=== PATIENT | female | born 1965 | race Caucasian/White ===

== ENCOUNTER 2024-05-17 13:11 | Inpatient (IN) | payer OTHER, SELFPAY ==
[2024-05-17 13:16] VITALS: BP 134/76; PULSE 72; RESP 16; TEMP 36.3; O2SAT 99; BMI 33.3
--- NOTE | 2024-05-17 13:23 | ED_ITS ---
HPI - General Adult General Time Seen by Provider: 13:23 Date Seen: 05/17/24 Chief complaint: Skin/Abscess/Foreign Body Stated complaint: Puncture wound to left leg Time Seen by Provider: 05/17/24 13:12 Source: patient and RN notes reviewed Mode of arrival: ambulatory Limitations: no limitations History of Present Illness HPI narrative: This 58-year-old female is coming into the ER with ongoing symptoms after a puncture wound about 48 hours ago. She went to [facility] yesterday, was given Augmentin, she states she had x-rays and they did irrigate the wound. She states the fluid return was clear. She has not documented fevers but felt chilled last night. She has had 2 doses of the Augmentin. She notes that she is having increasing pain behind the right knee area and the redness seems to be worsening. She has noted no purulent discharge. This was reportedly a wooden fence posts with long spikes on it. The spikes were kyle and old. She does not feel any bony type pain with ambulation. She states her foot is maybe feeling a little numb or tingly. She has been trying to minimize use of Tylenol and ibuprofen so as to not mask any symptoms. She was up in the middle the night due to discomfort, did take ibuprofen then. No history of MRSA. She takes an 81 mg aspirin daily, multi-vitamin, cholesterol medicine and levothyroxine. She is not diabetic. Related Data Home Medications ?Medication ?Instructions ?Recorded ?Confirmed levothyroxine 25 mcg tablet 25 mcg PO DAILY 10/08/22 05/17/24 amoxicillin 875 mg-potassium 1 tab PO Q12H 05/17/24 05/17/24 clavulanate 125 mg tablet Allergies Allergy/AdvReac Type Severity Reaction Status Date / Time No Known Drug Allergies Allergy Unknown Uncoded 10/08/22 11:19 Review of Systems Status of ROS: Reports: 6 or more systems reviewed and unremarkable except as noted in History and below Narrative: Patient notes it is Hayfever season for her, has respiratory symptoms with her hay fever. PFSH [facility] Social History Smoking Status: Never smoker Exam Const: Vital Signs, click to edit/add: Vital Signs - 24 hr 05/17/24 13:16 Temperature 97.4 F L Pulse Rate [Pulse Oximeter] 72 Respiratory Rate 16 Blood Pressure [Ri ght Upper Arm] 134/76 Pulse Oximetry 99 Oxygen Delivery Me thod Room Air Talia is a 58-year-old female that is alert, interactive, no apparent distress. She is ambulatory into the ED of her own accord. Sclera clear, symmetrical facial function coming able speak in complete sentences. CV regular rate and rhythm, no murmur, normal S1-S2, no S3-S4. Lungs are clear, no wheezing crackles, no tachypnea. Her upper portion of her right lower extremity does have erythema laterally surrounding about a 1.5 cm puncture wound in the right upper lateral soft tissue. There is some white exudate, some serous fluid discharge. She has erythema extending probably at least 6 8 cm circumferentially around this. There is generalized swelling. She is tender when palpating in the erythematous areas. There is a little extension into the right popliteal fossa of erythema. She has normal light touch sensation, strong symmetrical pulses in her right foot. Skin is warm and dry and same as her left foot. She has retained motor function within this extremity. Documenting provider has reviewed patient's vital signs: yes Course Course ED Course: Nursing staff did pull up her x-ray report off [facility], did show small punctate radiopacities over the proximal lateral leg which may be external to the patient or small retained foreign bodies. Correlation with physical exam was recommended. Have reviewed with her that we should reimage, see if there is further retained foreign bodies. There certainly is cellulitis, will get some baseline labs. Have reviewed with her that I would not say that 2 doses of Augmentin would necessitate a medication failure. I certainly do have concerns if there is retained foreign bodies in the wound. Nursing staff did find her tetanus to be up-to-date in 2021. Reevaluation(s) Time of Reevaluation #1: 14:24 Reevaluation #1: Reviewed with patient the 1 radiopaque foreign body seen along the inferior aspect of the wound. On the lateral view it is obscured by bone, difficult to assess where it in the inferior portion of the wound this is. Did take a Q-tip in go along the inferior portion of the wound x2, could not visibly see and did not pull back any foreign body. Literature would support no excessive blunt or blind manipulation of the wound in this situation. This wound is widely patent, patient understands that this foreign body may ultimately make its way to the exit. I am waiting to talk to Orthopedics, do think we need to consider are hospitalization for IV antibiotics initially in this patient. Labs are overall reassuring outside of an elevated C-reactive protein. D-dimer is negative. Consultations Consultation #1: Have spoken with Dr. Miranda the hospitalist. I still have not heard back from Orthopedics but did call to discuss this case with him. Is going to come down and see the patient, did recommend that we culture the wound, will definitely do a swab of the wound. Have reviewed this with the patient, she understands that he is coming to assess to see if he agrees with hospitalization, upon my discussion with him consideration for both Zosyn and vancomycin would be entertained. Will await him to see the patient. Note I did subsequently go into wound culture, did have 1 small visible black fragment of matter on 1 of the wound swabs when I retrieved it from the wound. Reviewed with the patient that this may or may not be the radio opaque fragment that we saw. Sometimes organic matter can get in these wounds 2 and will not show up radiopaque. Time: 14:30 Consultation #2: Ria PEREZ from Orthopedics was consulted, she is aware the patient will be here. Dr. Miranda has assess the patient, feels the cellulitis is worsening based on her history and clinical exam. We will initiate vancomycin and ertapenem. He will be following this patient, Orthopedics can consult tomorrow. He does not want any advanced imaging at this time but would consider it if she is not improving, consideration for abscess would be entertained at that point. Time: 14:57 Vital Signs Vital signs: Initial Vital Signs Temperature 97.4 F L 05/17/24 13:16 Temperature Source Temporal Artery Scan 05/17/24 13:16 Pulse Rate 72 05/17/24 13:16 Pulse Rhythm Regular 05/17/24 13:16 Respiratory Rate 16 05/17/24 13:16 Blood Pressure 134/76 05/17/24 13:16 Blood Pressure Mean 95 05/17/24 13:16 Blood Pressure Position Sitting 05/17/24 13:16 Pulse Oximetry 99 05/17/24 13:16 Oxygen Delivery Method Room Air 05/17/24 13:16 Vital Signs Temperature 97.4 F L 05/17/24 13:16 Pulse Rate 72 05/17/24 13:16 Respiratory Rate 16 05/17/24 13:16 Blood Pressure 134/76 05/17/24 13:16 Pulse Oximetry 99 05/17/24 13:16 Oxygen Delivery Method Room Air 05/17/24 13:16 Temperature 97.4 F L 05/17/24 13:16 Pulse Rate 72 05/17/24 13:16 Respiratory Rate 16 05/17/24 13:16 Blood Pressure 134/76 05/17/24 13:16 Pulse Oximetry 99 05/17/24 13:16 Oxygen Delivery Method Room Air 05/17/24 13:16 Medical Decision Making Lab Data Lab results reviewed: Yes I reviewed the patient's lab results Labs: Lab Results 05/17/24 Range/Units 13:35 WBC 6.09 (4.50-11.00) K/uL RBC 4.04 (4.00-5.20) m/uL Hgb 12.5 (12.0-16.0) gm/dL Hct 38.3 (33.0-51.0) % MCV 95 (80-100) fL MCH 31 (26-34) pg MCHC 33 (32-36) gm/dL RDW Coeff of Devante 13.0 (11.5-15.5) % Plt Count 207 (140-440) K/uL Neut % (Auto) 69.4 (42.0-72.0) % Lymph % (Auto) 19.0 L (20-44) % [place] % (Auto) 9.4 (0.0-11.0) % Eos % (Auto) 1.8 (0.0-7.0) % Baso % (Auto) 0.2 (0.0-3.0) % Neut # (Auto) 4.23 (1.7-7.0) K/uL Lymph # (Auto) 1.20 (0.90-2.90) K/uL [place] # (Auto) 0.60 (0.00-0.90) K/UL Eos # (Auto) 0.11 (0.00-0.50) K/uL Baso # (Auto) 0.01 (0.00-0.30) K/uL Abs Immat Gran (auto) 0.01 (0.00-0.30) K/uL Imm/Tot Granulo (auto) 0.2 % D-Dimer Quant (PE/DVT) 0.41 (0.00-0.50) ug/ml Sodium 137 (135-149) mmol/L Potassium 4.2 (3.6-5.1) mmol/L Chloride 108 (96-114) mmol/L Carbon Dioxide 24 (20-32) mmol/L Anion Gap 5 L (7-15) mEq/L BUN 15 (7-30) mg/dL Creatinine 0.8 (0.5-1.5) mg/dL Estimated Creat Clear 68.97 Estimated GFR 85 ml/min Glucose 102 (60-115) mg/dL Lactate 0.5 (0.5-1.9) mmol/L Calcium 10.0 (8.4-10.6) mg/dL Total Bilirubin 0.5 (0.1-1.5) mg/dL AST 25 (12-35) U/L ALT 18 (4-35) U/L Alkaline Phosphatase 91 (40-150) U/L C-Reactive Protein 5.4 H (0.5-1.0) mg/dL Total Protein 7.4 (6.0-8.3) g/dL Albumin 4.6 (3.3-5.0) g/dL Procalcitonin 0.04 (<0.50) ng/mL Imaging Data XR right tib-fib: Attestation: I have reviewed the pertinent imaging results. My impression: Can see radiopaque lesion along the inferior aspect. After Radiology read, did review the images and can see there are some more punctate superior smaller radiopaque lesions. Radiologist's impression: Patient: DESHAUN PARK Facility:?[facility] Patient ID:?[id number] Site Patient ID:?[id number]. Site :?[id number] Study:?XRay-Extremity Right 2 VIEW-05/17/2024 1:49:48 PM Ordering Physician:Lonnie Garcia Final Report: Indication: Puncture wound, retained foreign body Technique: Two views of the right lower extremity. Comparison: None. Findings/Impression: No acute fracture or dislocation. Along the lateral lower extremity there are tiny punctate radiopaque densities, the largest measuring 2 millimeters, in the region of soft tissue defect concerning for small retained foreign bodies. Dictated by Lillian Rouse MD @ 05/17/2024 2:34:52 PM (Electronic Signature) Discharge Plan Discharge Clinical Impression: Puncture wound of leg not thigh Qualifiers: Encounter type: subsequent encounter Laterality: right Qualified Code(s): S81.831D - Puncture wound without foreign body, right lower leg, subsequent encounter Cellulitis Qualifiers: Site of cellulitis: extremity Site of cellulitis of extremity: lower extremity Laterality: right Qualified Code(s): L03.115 - Cellulitis of right lower limb Prescriptions: No Action levothyroxine 25 mcg tablet 25 mcg PO DAILY amoxicillin-pot clavulanate 875-125 mg tablet 1 tab PO Q12H Follow Up/Referrals: Provider,Not a Local [Primary Care Provider] -
--- NOTE | 2024-05-17 13:31 | CRLHL7_ITS ---
For Patients: As a result of the Cures Act, medical imaging exams and procedure reports are released immediately into your electronic medical record. You may view this report before your referring provider. If you have questions, please contact your health care provider. Indication: Puncture wound, retained foreign body Technique: Two views of the right lower extremity. Comparison: None. Findings/Impression: No acute fracture or dislocation. Along the lateral lower extremity there are tiny punctate radiopaque densities, the largest measuring 2 millimeters, in the region of soft tissue defect concerning for small retained foreign bodies. Dictated by Lillian Rouse MD @ 05/17/2024 2:34:52 PM (Electronically Signed)
[2024-05-17 13:43] LABS: Lactate* 0.5 mmol/L (0.5-1.9)
[2024-05-17 13:47] LABS: Basophils Absolute Auto 0.01 K/uL (0.00-0.30); Basophils Percent Auto 0.2 % (0.0-3.0); Eosinophils Absolute Auto 0.11 K/uL (0.00-0.50); Eosinophils Percent Auto 1.8 % (0.0-7.0); Hematocrit 38.3 % (33.0-51.0); Hemoglobin* 12.5 gm/dL (12.0-16.0); Immature Granulocytes Abs Auto 0.01 K/uL (0.00-0.30); Immature Granulocytes Pct Auto 0.2 %; Mean Corpuscular HGB Conc 33 gm/dL (32-36); Mean Corpuscular Hemoglobin 31 pg (26-34); Mean Corpuscular Volume 95 fL (80-100); Monocytes Percent Auto 9.4 % (0.0-11.0); Neutrophils Absolute Auto 4.23 K/uL (1.7-7.0); Neutrophils Percent Auto 69.4 % (42.0-72.0); Platelet Count* 207 K/uL (140-440); Red Blood Count 4.04 m/uL (4.00-5.20); White Blood Count* 6.09 K/uL (4.50-11.00)
[2024-05-17 13:50] LABS: Slide Review Reflex No
[2024-05-17 14:00] LABS: Albumin* 4.6 g/dL (3.3-5.0); Chloride* 108 mmol/L (96-114); Sodium* 137 mmol/L (135-149)
[2024-05-17 14:01] LABS: Potassium* 4.2 mmol/L (3.6-5.1)
[2024-05-17 14:03] LABS: Anion Gap 5 mEq/L (7-15); Bilirubin Total* 0.5 mg/dL (0.1-1.5); Carbon Dioxide* 24 mmol/L (20-32); Creatinine* 0.8 mg/dL (0.5-1.5); Est. Creatinine Clearance* 68.97; Estimated Glomerular Filt Rate 85 ml/min
[2024-05-17 14:04] LABS: Alanine Aminotransferase* 18 U/L (4-35); Alkaline Phosphatase* 91 U/L (40-150); Aspartate Amino Transferase* 25 U/L (12-35); Blood Urea Nitrogen* 15 mg/dL (7-30); Glucose* 102 mg/dL (60-115); Total Protein* 7.4 g/dL (6.0-8.3)
[2024-05-17 14:06] LABS: D Dimer Quantitative* 0.41 ug/ml (0.00-0.50)
[2024-05-17 14:07] LABS: C Reactive Protein* 5.4 mg/dL (0.5-1.0)
--- OUTSIDE RECORDS SUMMARY | 2024-05-17 14:10 | XMS_ITS | Clinical Summary ---
Author Organization [facility] Address [place], [place] [address] Care Team Providers Care Ferry Terminal Supervisor Name Role Phone Migel Sommers Primary Care Provide r Allergies Active Allergy Reactions Criticality Noted Date Comments Homeopathic Products Runny Nose Medium 09/11/2007 seasonal/environmental allergies Mold *Unknown 09/20/2021 Medications Medication Sig Dispensed Refills Start Date End Date Status MULTIVITAMIN TAB take 1 tablet by oral route once daily with food 0 Active ASPIRIN 81 MG CHEWABLE TAB chew 1 tablet (81 mg) by oral route once daily 0 Active levothyroxine (SYNTHROID) 50 mcg tabletIndications:Hy pothyroidism (acquired) Take 1 Tablet (50 mcg) by mouth once daily. 90 Tablet 3 10/06/2023 Active rosuvastatin (CRESTOR) 10 mg tabletIndications:Ot her hyperlipidemia Take 1 Tablet (10 mg) by mouth at bedtime. 90 Tablet 3 10/06/2023 Active amoxicillin-clavulan ate (AUGMENTIN) 875-125 mg tabletIndications:Pu ncture wound Take 1 Tablet by mouth every 12 hours for 10 days. 20 Tablet 05/16/2024 05/26/2024 Active amoxicillin-clavulan ate (AUGMENTIN) 875-125 mg tabletIndications:Pu ncture wound Take 1 Tablet by mouth every 12 hours for 10 days. 20 Tablet 05/16/2024 05/16/2024 Discontinued (*Medication adjustment) Active Problems Problem Noted Date Diagnosed Date Pap smear for cervical cancer screening 10/20/19 24 Overview: 09/2023 UNS/HPV negative. Plan: Pap/HPV due 09/2024. Hypothyroidism (acquired) Encounters Date Type Department Care Team Description 05/16/2024 5:30 PM CDT Ancillary Procedure [facility] [address] [place] [address] Arrived 05/16/2024 4:50 PM CDT Office Visit [facility] [place] [id number] [place] [phone] Juan Daniel Reid PA Leg Laceration (puncture wound to right leg ) 05/16/2024 Travel from Last 3 Months Immunizations Name Administration Dates Next Due COVID-19 vaccine ([place] NTDigital Bloom 30mcg/0.3mL) 12YO+ BIVALENT PF, MDV 06/12/2022 Influenza, IIV4 06/12/2022,06/27/2021 Influenza,CCIIV4 PRESERV FREE 06/09/2023 Tdap 09/20/2021,10/06/2009 Zoster (Shingrix-RZV, recombinant) 09/30/2023, Family History Medical History Relation Name Comments Cancer-breast Paternal Grandmother Relation Name Status Comments Paternal Grandmother (Age 78) Di agnosed at 70 Social History Tobacco Use Types Packs/Day Years Used Date Smoking Tobacco: Former Smokeless Tobacco: Never Tobacco Cessation:Counseling Given: Not Answered Alcohol Use Standard Drinks/Week Comments Yes 0 (1 standard drink = 0.6 oz pur e alcohol) occ PHQ-2 Answer Date Recorded PHQ-2 TOTAL SCORE 0 10/06/2023 Social Connections Answer Date Recorded Frequency of Communication with Friends and Fami ly 0 10/06/2023 Financial Resource Strain Answer Date R ecorded Difficulty of Paying Living Expenses 3 10/06/2023 Difficulty of Paying Living Expenses Not on file 10/06/2023 Food Insecurity Answer Date Recorded Worried About Running Out of Food in the Last Ye ar 1 10/06/2023 Transportation Needs Answer Date Record ed Lack of Transportation (Medical) 1 10/06/2023 Housing Stability Answer Date Recorded Unable to Pay for Housing in the Last Year 1 10/06/2023 Sex and Gender Information Value Date Recorded Sex Assigned at Not on file Gender Identity Not on file Sexual Orientation Not on file Travel History Travel Start Travel End [place] 04/27/2024 05/02/2024 Obstetrics History Last Filed Vital Signs Vital Sign Reading Time Taken Comments Blood Pressure 125/65 05/16/2024 4:44 PM CDT Pulse 70 05/16/2024 4:44 PM CDT Temperature 36.8 ??C (98.2 ??F) 05/16/2024 4:44 PM CD T Respiratory Rate 16 05/16/2024 4:44 PM CDT Oxygen Saturation 98% 05/16/2024 4:44 PM CDT Inhaled Oxygen Concentration - - Weight 84.8 kg (187 lb) 10/06/2023 12:24 PM STUFFER Height 163.8 cm (5' 4.5) 10/06/2023 12:24 PM CS T Body Mass Index 31.6 10/06/2023 12:24 PM STUFFER Plan of Treatment Upcoming Encounters Date Type Department Care Team (Late st Contact Info) Description 05/25/2024 9:40 AM CDT Office Visit [facility] [address] [place] [address] [facility] [address] [place], [place] [id number] Health Maintenance Due Date Last Done Comments Mammogram for age 45-75 04/18/2024 04/18/20, 01/01/2022, 11/20/2020, Additional history exists COVID-19 vaccine series (2022- season) 2024 06/12/2022, 08/30/2021, 12/20/2020 Influenza for age 50-64 05/16/2024 06/09/20 23, 06/12/2022, 06/27/2021 BMI (ht and wt on same day) for age 18+ 10/06/2024 10/06/2023, 09/16/2022, 09/20/2021 Depression screening for age 12+ 10/06/2024 10/06/2023, 09/16/2022, 09/24/2021, Additional history exists Pap test for age 21-65 10/06/2024 , 10/02/2020 (Verified in Care Everywhere or Patient Record) Colonoscopy through age 75 12/19/202512/19, 12/20/2015 (Verified in Care Everywhere or Patient Record) Lipids for age 45-75 10/06/2028 10/06/2023, 09/16/2022, 01/01/2022, Additional history exists Tetanus booster 09/20/2031 09/20/2021, 10/06/2009 Tdap Completed 09/20/2021, 10/06/2009 HIV for age 15-65 Completed 09/16/2022 Hepatitis C screening for age 18-79 Completed 09/16/2022 Zoster (shingles) series for age 50+ Completed 09/30/2023, 06/09/2023 Pneumococcal series for age 6-64 Aged Out No longer eligible based on patient's age to complete this topic Procedures Procedure Name Priority Date/Time Associated Diagnosis Comments XR TIBIA AND FIBULA 2 VIEWS RIGHT STAT 05/16/2024 5:42 PM CDT Puncture wound LIPID PANEL W REFLEX MEASURED LDL Routine 10/06/2023 1:01 PM STUFFER Routine general medical examination at a health care facility HPV THIN PREP Routine 10/06/2023 12:40 PM STUFFER Screening for cervical cancer XR MAMMO CHARLES BILAT SCREEN Routine 04/18/2023 9:50 AM CDT Visit for screening mammogram LC HIV-1/O/2, 4TH GENERATION Routine 09/16/2022 12:29 PM STUFFER Screening for HIV (human immunodeficiency virus) LC HCV ANTIBODY RFX TO QUANT PCR Routine 09/16/2022 12:29 PM STUFFER Need for hepatitis C screening test SCAN-COLONOSCOPY 12/20/2015 12:0 0 AM CDT from Last 3 Months or Most Recently Relevant to Health Maintenance Results * XR TIBIA AND FIBULA 2 VIEWS RIGHT (05/16/2024 5:42 PM CDT) Anatomical Region Laterality Modality Tibia Computed Radiogr aphy 05/16/2024 5:42 PM CDT Impressions 05/16/2024 5:48 PM CDT Within normal limits. No acute fracture. Foci of soft tissue gas and edema over the lateral proximal leg which may be related to reported puncture wound. Small punctate radiopacities over the proximal lateral leg which may be external to the patient or small retained foreign bodies. Correlation with physical exam suggested. Narrative 05/16/2024 5:48 PM CDT For Patients: As a result of the Cures Act, medical imaging exams and procedure reports are released immediately into your electronic medical record. You may view this report before your referring provider. If you have questions, please contact your health care provider. EXAM: XR TIBIA AND FIBULA 2 VIEWS RIGHT LOCATION: [facility] DATE: 05/16/2024 INDICATION: Puncture Wound COMPARISON: None. Procedure Note Adilson Begum, - 05/16/2024 For Patients: As a result of the Cures Act, medical imagingexams and procedure reports are released immediately into your electronicmedical record. You may view this report before your referring provider.If you have questions, please contact your health care provider. EXAM: XR TIBIA AND FIBULA 2 VIEWS RIGHT LOCATION: [facility] DATE: 05/16/2024 INDICATION: Puncture Wound COMPARISON: None. IMPRESSION: Within normal limits. No acute fracture. Foci of soft tissue gas and edemaover the lateral proximal leg which may be related to reported puncturewound. Small punctate radiopacities over the proximal lateral leg whichmay be external to the patient or small retained foreign bodies.Correlation with physical exam suggested. Juan Daniel [facility] * LIPID PANEL W REFLEX MEASURED LDL (10/06/2023 1:01 PM STUFFER) CHOLESTEROL,TOTAL 174 100 - 199 mg/dL 10/06/2023 11:10 PM STUFFER [facility] Comment: Cholesterol, Total Reference Ranges Desirable <200 mg/dL Borderline 200-239 mg/dL High >=240 mg/dL TRIGLYCERIDES 59 <150 mg/dL 10/06/2023 11:10 PM [facility] HDL CHOLESTEROL 70 >40 mg/dL 11:10 PM [facility] NON-HDL CHOLESTEROL 104 <145 mg/dl 10/06/2023 11:10 PM [facility] CHOL/HDL RATIO 2.49 <4.50 10/06/2023 11:10 PM [facility] LDL CHOLESTEROL 92 <=130 mg/dL 10/06/2023 11:10 PM [facility] VLDL CHOLESTEROL 12 <=30 mg/dL 10/06/2023 11:10 PM [facility] PROVIDER ORDERED STATUS RANDOM 10/06/2023 11:10 PM [facility] Blood BLOOD SPECIMEN / Unknown Venipuncture / Unknown 10/06/2023 1:01 PM STUFFER 10/06/2023 3:32 PM STUFFER Migel Sommers DO CHEMISTRY [facility] [address] [place] [address], * HPV HIGH RISK (10/06/2023 12:40 PM STUFFER) TYPE 16 Negative Negative 10/09/2023 5:15 PM STUFFER [facility] TYPE 18 Negative Negative 10/09/2023 5:15 PM STUFFER [facility] OTHER HIGH RISK TYPES Negative Negative 10/09/2023 5:15 PM STUFFER [facility] Other (Cervical) Non-Blood / Unknown 10/06/2023 12:40 PM STUFFER 10/07/2023 8:56 AM STUFFER [facility] - 10/09/2023 5:15 PM STUFFER HPV types 16, 18, 31, 33, 35, 39, 45, 51, 52, 56, 58, 59, 66 and 68 DNA were undetectable or below the pre-set threshold. Methodology: Kayden Jessica 4800 HPV Test Migel Sommers DO MICROBIOLOGY [facility] [address] [place] [address], * XR MAMMO CHARLES BILAT SCREEN (04/18/2023 9:50 AM CDT) Anatomical Region Laterality Modality BREASTS, Breast Left, Breast Right Bilateral Mammography Impressions 04/21/2023 1:36 PM CDT ??There is no radiographic evidence for malignancy. ??Recommend annual mammograms. MAMMOGRAM ASSESSMENT: ??ACR 1 Negative PATIENTS: You will also receive a letter with your examination results in an easy to read format. ??If you have questions about your results, please contact your referring provider. Narrative 04/21/2023 1:36 PM CDT For Patients: As a result of the Century Cures Act, medical imaging exams and procedure reports are released immediately into your electronic medical record. You may view this report before your referring provider. If you have questions, please contact your health care provider. XR MAMMO CHARLES BILAT SCREEN [[id number]] CLINICAL HISTORY: ??This is an asymptomatic 57 y.o. patient. INDICATION FOR EXAM: Mammogram Screening. TECHNIQUE: CC & MLO views were obtained. ??This study was evaluated with the assistance of Computer-Aided Detection. Breast Tomosynthesis was used in interpretation. COMPARISON FILM: Yes [facility]22 [facility] FINDINGS: ??The breasts are heterogeneously dense, which may obscure small masses. There are no dominant masses, suspicious micro calcifications or areas of architectural distortion. Migel Sommers DO MAMMO * LC HCV ANTIBODY RFX TO QUANT PCR (09/16/2022 12:29 PM STUFFER) HCV Ab <0.1 0.0 - 0.9 s/co ratio 09/19/2022 11:06 PM STUFFER [facility] Blood BLOOD SPECIMEN / Unknown Venipuncture / Unknown 09/16/2022 12:29 PM STUFFER 09/16/2022 12:29 PM STUFFER Narrative [facility] ([facility]) - 09/19/2022 11:06 PM STUFFER Performed at: ??[address] ??[id number] Service Member: Issa Cuenca MD, Phone: ??[phone] Migel Gurvinder Martelraymond DO LABORATORY [facility] ([facility]) [address] [place] [address], * HIV-1/O/2, 4TH GENERATION (09/16/2022 12:29 PM STUFFER) HIV Scr 4th Gen Non Reactive Non Reactive 09/20/2022 1:[address] [facility] ([facility]) Comment: HIV Negative HIV-1/HIV-2 antibodies and HIV-1 p24 antigen were NOT detected. There is no laboratory evidence of HIV infection. Blood BLOOD SPECIMEN / Unknown Venipuncture / Unknown 09/16/2022 12:29 PM STUFFER 09/16/2022 12:29 PM STUFFER Narrative [facility] ([facility]) - 09/20/2022 1:07 AM STUFFER Performed at: ??[address] ??[id number] Service Member: Issa Cuenca MD, Phone: ??[phone] Migel Sommers DO LABORATORY Performing Organization Address City/[facility]/ZIP Co de Phone Number 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
--- OUTSIDE RECORDS SUMMARY | 2024-05-17 14:10 | XMS_ITS | Data Portability ---
Author Organization [facility], [id number] Address [address] [place] [id number] Assessment No assessment recorded. Plan of Treatment Reminders Order Date Submit Date Provider Last Modified By Organization Details Last Modified Time Details Appointments None record ed. Lab pap, LB 021 10/02/19 21 [facility], [address] [place], [address], 1 14:05:22 HPV DNA, high-r isk 021 10/02/19 21 [facility], [address] [place], [address], 1 14:05:20 Referral None record ed. Procedures None record ed. Surgeries None record ed. Imaging None record ed. Medication Orders None record ed. Patient TargetsNo targets recorded. Patient Instructions Encounter Date Encounter Id Patient Instructions Last Modified By Organization Details Last Modified Time 10/02/2020 [id number] RTC in 1 year fo r annual breast/pelvic exam. Continue annual exams with PCP. Sent PAP, HPV. Will call pt with results. Last mammogram: 2019 was normal. Advised to schedule routine mammogram. Last colonoscopy at age 50 was normal. Will repeat at age 60. Advised to always wear seatbelt. Recommended monthly breast checks. Pt's paternal grandmother had breast cancer around age 80. Denies FmHx of ovarian, uterine, cervical or colon cancers. All questions answered. [email or web address] Not available 10/02/2020 17:24:22 Reason for Referral None Reported. Results Created Date Observation Date Name Description Value Unit Range Abnormal Flag Note LastModifiedBy Organization Detail LastModifiedTime 10/02/1910/02/2020 HPV DNA, high- risk HPV high risk type 16 Negati ve for HPV type 16. negati ve for HPV type 16. Not Available [facility] [address] [place], [address], 10/11/2020 14:05:19 10/02/1910/02/2020 HPV DNA, high- risk HPV high risk type 18 Negati ve for HPV type 18. negati ve for HPV type 18. Not Available [facility] [address] [place], [address], 10/11/2020 14:05:19 10/02/1910/02/2020 HPV DNA, high- risk HPV other high risk types Negati ve for other high risk HPV types. negati ve for other high risk HPV types. HPV other high risk types inclu de 31, 33, 35, 39, 45, 51, 52, 56, 58, 59, 66, and 68. Not Available [facility] [address] [place], [address], 10/11/2020 14:05:19 10/02/1910/02/2020 pap, LB case report See note CASE REPOR T ----- ----- ----- ----- ----- ----- ----- ----- Pap Smear Case: [id number] Autho zach causey Provi katerina: Rafy Key PA Colle cted: 10/02 01:59 PM Order ing Locat ion: Fernando winter Healjayla h Recei hammad: 10/03 09:03 AM Hospi janet Gener al Labor atory First Scree n: Leijosesito h, Caterina Speci men: Cervi kevin Thin Prep with HPV Test Image r Scree sisi, Cervi x ===== ===== ===== ==== = INTER PRETA TION: = ===== ===== ===== ==== Negat adriel for intra epith elial lesio n or malig nant cells . Elect pretty paul d by Caterina Land on 2020 at 1:04 PM SPECI MEN ADEQU ACY ----- ----- ----- ----- ----- ----- ----- ----- Satis facto ry for evalu ation . Endoc errashid al/tr ansfo rmati on zone compo nent prese nt. CLINI KEVIN INFOR MATIO N ----- ----- ----- ----- ----- ----- ----- ----- Postm enopa usal LMP ----- ----- ----- ----- ----- ----- ----- ----- UNKNO WN PAP DISCL AIMER ----- ----- ----- ----- ----- ----- ----- ----- This speci men was scree itz by the ThinP rep Imagi ng Syste m prior to manua l revie w by a cytot echno logis t and/o r patho logis t. The Pap test is a scree sisi test and has an irred ucibl e false -nega tive rate. Routi ne perio dic testi ng and follo w-up of unexp angelic d clini kevin signs and sympt oms are impor tant to minim ize the conse quenc e of false -nega tive Pap tests . Cassandra dawson et al. 2012 Updat ed Conse nsus Guide lines for the Manag ement of Abnor mal Cervi kevin Cance r Scree sisi Tests and Canstephan r Precu rsors . J Low Genit Tract Dis 2013; 17 (5): S2-S2 7 Not Available [facility] [address] [place], [address], 10/11/2020 14:05:22 Result Notes None recorded. Problems Name Problem SNOMED Code Status Onset Date Resolution Date Notes Provider Name and Address Organization Details Recorded Time Hypothyroidism 01094451 Active on meds Not Available [facility] 0 05:07:30 Migraine 13709343 Active Not Available [facility] 0 05:07:30 Problem Notes None recorded. Procedures Surgical History Date Name Laterality Status Provider Name and Address Organization Details Recorded Time 10/02/19 21 Date of Last Pap Smear completed Tayla Linkert (TERMED) [facility] 10/11/2020 16:15:05 loop electrosurgical excision procedure completed Not Available [facility] 04/20/2020 05:12:06 radical bunionectomy completed Not Available [facility] 04/20/2020 05:12:06 endoscopic carpal tunnel release completed Not Available [facility] 04/20/2020 05:12:06 dilation and curettage completed Not Available [facility] 04/20/2020 05:12:06 endometrial ablation completed Not Available [facility] 04/20/2020 05:12:07 hysteroscopy completed Not Available [facility] 04/20/2020 05:12:07 Imaging Results None recorded. Procedure Notes None recorded. Medical Equipment None Reported. Allergies Allergen ID Allergen Name Allergen Category Reaction Reaction Severity Criticality Documentation Date Start Date Code Code System Note Provider Name and Address Organization Details Recorded Time 37605 mold extract environme nt Not available Not available Not available 04/20/2020 09824 8 RxNorm Not Available [facility] 0 05:09:00 Medications Name Sig Start Date Stop Date Status Note LastModified by Organization Details LastModified Time Synthroid 50 mcg tablet active Not Available Not Available N ot Available Synthroid active Not Available Not Jami ilable Not Available Vitals Date Recorded Body weight Body mass index (BMI) Body height Systolic blood pressure Diastolic blood pressure Provider Name and Address Organization Details Last Updated DateTime 10/02/2020 24493.1 g 5512.1 kg/m2 12.7 cm 118 mm[Hg] 72 mm[Hg] Tayla Linkert (TERMED) [facility] - [facility] 14:39:23 Social History Question Answer Notes LastModified by [email or web address] Details LastModified Time Tobacco Smoking Status Former Smoker Tobacco *Status: Former Not Available [facility] 04/24/2020 10:37:20 Do You Have An Advance Directive? Yes Does Have A Health Care Directive Information not available 04/24/2020 What Is Your Level Of Alcohol Consumption? Occasional Alcohol *Status: Current Some Day *Qty: 1-4 / Week *Note: - [employer]rees[employer] 05/13/2019 Information not available 04/24/2020 What Is Your Level Of Caffeine Consumption? None Caffeine Information not available 04/24/2020 History Of Domestic Violence No Denies Any History Of Domestic Violence Information not available 04/24/2020 Marital Status Information not available 04/24/2020 Performs Monthly Self-breast Exam? Yes Does Perform Monthly Breast Exams Information not available 04/24/2020 Are You Sexually Active? Yes Sexually Active Information not available 04/24/2020 Sex: Unknown Functional Status Question Answer Note LastModified by [email or web address] Details LastModified Time What is your exercise level? Occasional Minimal Amount of Exercise (Once weekly or less) *Note: - [employer]rees[employer] 05/13/2019 Information not available 04/24/2020 Mental Status None recorded. Family History Relationship Description Onset Age of this Age Resolved Age Notes Father Family history of neurological disorder Family His tory of Parkinson's Disease Father Family history of Cardiovascular disease Family History of Hypertension Sister Family history of Arthritis Family History of Rheumatoid Arthritis Mother Family history of Gastrointestinal disease Family History of Gastric Ulcer Paternal Grandmother Family history of breast cancer Family History of Cancer; Breast Notes:Family History of Carl nary Artery Disease ICD-9 V17.49 Family History of Cardiac Arrhythmia ICD-9 V17.49 Medical History Condition Response Neurology- Headaches/Migraines Y Endocrinology- Hypothyroidism Gynecological History Statement/Question Response Date of Last Pap Smear 10/02/2020 HPV Test Negative Obstetrics History GPAL:G 2 P 1 0 1 1 Type Value Multiple Births 0 Full Term 1 Induced 1 Spontaneous 0 Premature 0 Living 1 Ectopics 0 Total 2 Past Encounters Encounter ID Performer Location Encounter Start Date Encounter Closed Date Diagnosis/Indication Diagnosis SNOMED-CT Code Diagnosis ICD10 Code [id number] ELMER BURGOS PA-C [id number] [facility] [address] [place] [address] 10/02/2020 14:38:12 10/02/2020 15:04:07 Gynecologic examination 12649720 Z01.419 Health Concerns Section Related Observation LastModified by Organization Detai ls LastModified Time None Recorded Concern Status LastModified by Organization Details LastModified Time None Recorded Advance Directives Directive Y: Does have a Health Care D irective Payers Encounter Date Sequence Insurance Name Policy Number Policy Bartlett Covered Member ID Bartlett Member ID Guarantor Name 10/02/2020 1 [employer] Ashlee Dale [id number] Ashlee Dale Notes Date Note Type Note Provider Name and Address Organization Details Recorded Time 10/02/2020 text/html HPI Notes: Bolivar mead presents for her annual breast/pelvic exam worked up by: GRZEGORZ. Patient declines a meat cutter for her pelvic and/or breast exam. She does have a primary physician. HEALTH SCREENING Her last tetanus shot was unknown She last had her cholesterol checked in: The patient has had a colonoscopy at age 50 that was normal. The patient has had a mammogram. Last one in 2019 was normal. Currently the patient does not take a calcium supplement. The patient does exercise regularly. She does drink alcohol and does not smoke. The patient does not request STD screening. Her menses are no longer present. 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 She is having no significant safety instructor symptoms. ELMER BURGOS PA-C [id number] [facility],[address], [place], [address], [place] - [employer] [facility] 10/02/2020 17:24:39 OBGyn Episode Ob Episode Information Episode Created Date Number of Fetuses Patient Bloodtype Patient rh Status Prepregnancy Weight lbs Domestic Partner Domestic Partner Phone Father Name Industrial Economics Teacher Status 10/02/19 21 1 CLOSED Fetus Data First Name Last Name Admitted to NICU Weight (g) Sex Living Outcome Pediatric Complications Fetus ID Race Codes Race Delivery Type 3203.26 6704 F Prematur e [id number] Vaginal Forceps Rick Calculation Initial Rick Date Initial Exam Date Initial Exam Provider Initial Ultrasound Date Last Menstrual Period Date Ultra Sound Weeks Gestation 0 Eighteen To Twenty Week Rick Update Ultra Sound Date Fundal Height At Umbil Quickening Date Ultra Sound Latest Weeks Gestation Final Rick Confirmed By Final Rick Confirmed Date Final Rick Date Ultra Sound Latest Days Gestation 0 0 Menstrual History Last Menstrual Date Menses Monthly On Bcp Conception Prior Menses Frequency Hcg Plus Date Menarche Onset Age Delivery Information Delivery Date Delivery Type Labor Anesthesia Weeks Gestation Incision Type Labor Labor Length Hrs Delivered By Post Complications Tubal Sterilization Discharge Date Comments 0 33 true 14 Discharge Information Feeding Method Contraceptive Method Maternal HG B and HCT Levels
[2024-05-17 14:20] LABS: Procalcitonin* 0.04 ng/mL (<0.50)
[2024-05-17] MEDS: ERTAPENEM 1 GM in 0.9 % SODIUM CHLORIDE Mini-bag 100 ML IVPB (15:14)
--- NOTE | 2024-05-17 15:25 | P.IMHP_ITS ---
Hospitalist- H&P: HPI History of Present Illness Date Seen: 05/17/24 Chief complaint: Puncture wound to left leg Narrative: Ashlee Dale is a 58 year old female presents with worsening infection around a puncture wound on her right leg. Two days ago she was cleaning out some fence posts with rusted spikes in them. One of them poked her in leg causing a fairly large puncture wound over the proximal lateral leg. She cleaned out the wound at home. She had some redness around the wound so yesterday she went to urgent care where she had x-rays that showed some foreign body debris in the wound. She was started on Augmentin and has taken 2 doses. Overnight she has had increasing pain and swelling over that proximal lateral leg extending towards her right popliteal fossa. The area is now tender to touch. She has not had a fever. She does report that she has had some tingling in that right foot. No weakness in the foot or ankle. She reports no other injuries. Last tetanus was in September of 2021. She reports she has otherwise been feeling well. Review of Systems Narrative: Unremarkable except as noted above PFSH PFS Medical History Sleep apnea ?G47.30 - Sleep apnea, unspecified (ICD-10) Hyperlipidemia ?E78.5 - Hyperlipidemia, unspecified (ICD-10) Hypothyroidism ?E03.9 - Hypothyroidism, unspecified (ICD-10) Surgical History (Updated 05/17/24 @ 15:37 by Gurinder Miranda MD) History of bunionectomy ?Z98.890 - Other specified postprocedural states (ICD-10) History of carpal tunnel release of both wrists ?Z98.890 - Other specified postprocedural states (ICD-10) Family History (Updated 05/17/24 @ 15:37 by Gurinder Miranda MD) Grandmother Breast cancer Social History (Updated 05/17/24 @ 15:38 by Gurinder Miranda MD) Narrative: [place] with her . She does not smoke. She drinks 1-2 drinks on weekends. Not during weekdays. Smoking Status: Never smoker Meds Home Medications and Allergies Home Medications ?Medication ?Instructions ?Recorded ?Confirmed ?Type levothyroxine 25 mcg tablet 50 mcg PO DAILY 10/08/22 05/17/24 History amoxicillin 875 mg-potassium 1 tab PO Q12H 05/17/24 05/17/24 History clavulanate 125 mg tablet multivitamin (Daily Multi-Vitamin 1 tab PO DAILY 05/17/24 05/17/24 History tablet) rosuvastatin 10 mg tablet 10 mg PO DAILY 05/17/24 05/17/24 History Allergies Allergy/AdvReac Type Severity Reaction Status Date / Time No Known Drug Allergies Allergy Unknown Uncoded 10/08/22 11:19 Exam Narrative: Exam Narrative: She is alert and appears in no distress. She gives her own history. Eyes normal. Oropharynx normal. Neck is supple without mass or adenopathy. Respirations are clear to auscultation. Cardiovascular: S1, S2, regular rate and rhythm. No murmur gallop or rub. Abdomen: Bowel sounds active. Abdomen is soft without tenderness or mass. Upper extremities are normal. Left lower extremity appears normal. She has intact pulses and sensation. Right lower extremity is normal except for her proximal lateral right leg where she has a 1 x 2 cm open and relatively deep wound in her leg. This is draining a serous fluid. Wound otherwise appears to be clean. Surrounding this she has extending out an area of about 10 cm diameter of erythema. This area is also warm, indurated and tender to touch. Distally she has intact strength and motion in her foot and ankle. Intact sensation, intact pulses and no edema Const: Vital Signs, click to edit/add: Vital Signs - 24 hr 05/17/24 13:16 Temperature 97.4 F L Pulse Rate [Pulse Oximeter] 72 Respiratory Rate 16 Blood Pressure [Ri ght Upper Arm] 134/76 Pulse Oximetry 99 Oxygen Delivery Me thod Room Air Documenting provider has reviewed patient's vital signs: yes Hospitalist - H&P: Result Labs Labs: Short CBC 05/17/24 Range/Units 13:35 WBC 6.09 (4.50-11.00) K/uL Hgb 12.5 (12.0-16.0) gm/dL Hct 38.3 (33.0-51.0) % Plt Count 207 (140-440) K/uL BMP 05/17/24 13:35 Sodium 137 Potassium 4.2 Chloride 108 Carbon Dioxide 24 BUN 15 Creatinine 0.8 Glucose 102 Calcium 10.0 Liver Function 05/17/24 Range/Units 13:35 Total Bilirubin 0.5 (0.1-1.5) mg/dL AST 25 (12-35) U/L ALT 18 (4-35) U/L Alkaline Phosphatase 91 (40-150) U/L Albumin 4.6 (3.3-5.0) g/dL Imaging Right tib fib x-ray: Radiologist's impression: Indication: Puncture wound, retained foreign body Technique: Two views of the right lower extremity. Comparison: None. Findings/Impression: No acute fracture or dislocation. Along the lateral lower extremity there are tiny punctate radiopaque densities, the largest measuring 2 millimeters, in the region of soft tissue defect concerning for small retained foreign bodies. Assessment and Plan Assessment and plan (1) Puncture wound of leg not thigh: Status: Acute (2) Cellulitis: Problem comment: Initiate treatment with ertapenem and vancomycin. Await culture and clinical course. Monitor for signs or symptoms of abscess. Status: Acute Plan Patient is hospitalized for IV antibiotics and monitoring for complications of leg cellulitis, development of abscess, neurovascular compromise. Total Time Spent Total Time Spent: 65 minutes
[2024-05-17] MEDS: VANCOMYCIN 1.75 GM/350 ML 1.75 GM/350 ML PIGGYBACK IVPB (15:38)
[2024-05-17 16:30] VITALS: BP 136/76; PULSE 68; RESP 16; TEMP 36.6; O2SAT 98; BMI 33.7
[2024-05-17] MEDS: ACETAMINOPHEN 325 MG TABLET 650 MG PO (18:49)
--- NOTE | 2024-05-17 20:06 | PC.NURSE ---
Pt pleasant and cooperative. Rates pain 2-5/10 near site of puncture would on lateral right calf working up and behind knee. Redness noted and outlines. Puncture wound covered with Mepilex. Pt complained of itching and redness during Vanco infusion. Reduced rate to 100/hr and notified Dr. Miranda. Not changes in Vanco order but added PRN Benadryl for itching. Pt is aware Benadryl is available if itching persists. Up independently in room. CPAP was brought in by , checked by OLMAN Pop.
[2024-05-17] MEDS: IBUPROFEN 400 MG TABLET PO (21:55)
[2024-05-17] MEDS: SODIUM CHLORIDE 0.9 % (FLUSH) 10 ML SYRINGE 5 ML IVF (21:56)
[2024-05-17] MEDS: diphenhydrAMINE 50 MG/ML inj 25 MG IVP (21:56)
[2024-05-17 22:39] VITALS: BP 130/72; PULSE 77; RESP 20; TEMP 36.9; O2SAT 97
[2024-05-18 03:00] VITALS: BP 114/57; PULSE 64; RESP 16; TEMP 36.8; O2SAT 98
[2024-05-18] MEDS: diphenhydrAMINE 50 MG/ML inj 25 MG IVP ×2 (04:54→17:00)
[2024-05-18] MEDS: VANCOMYCIN 1.25 GM/250 ML 1.25 GM/250 ML PIGGYBACK IVPB ×2 (04:54→17:01)
[2024-05-18 06:31] LABS: Basophils Absolute Auto 0.03 K/uL (0.00-0.30); Basophils Percent Auto 0.6 % (0.0-3.0); Eosinophils Absolute Auto 0.13 K/uL (0.00-0.50); Eosinophils Percent Auto 2.8 % (0.0-7.0); Hematocrit 35.2 % (33.0-51.0); Hemoglobin* 11.3 gm/dL (12.0-16.0); Immature Granulocytes Abs Auto 0.01 K/uL (0.00-0.30); Immature Granulocytes Pct Auto 0.2 %; Lymphocytes Absolute Auto 1.09 K/uL (0.90-2.90); Lymphocytes Percent Auto 23.3 % (20-44); Mean Corpuscular HGB Conc 32 gm/dL (32-36); Mean Corpuscular Hemoglobin 31 pg (26-34); Mean Corpuscular Volume 96 fL (80-100); Monocytes Percent Auto 11.6 % (0.0-11.0); Neutrophils Absolute Auto 2.87 K/uL (1.7-7.0); Neutrophils Percent Auto 61.5 % (42.0-72.0); Platelet Count* 196 K/uL (140-440); RDW Coefficient of Variation % 13.2 % (11.5-15.5); Red Blood Count 3.66 m/uL (4.00-5.20); White Blood Count* 4.67 K/uL (4.50-11.00)
[2024-05-18 06:32] LABS: Slide Review Reflex No
[2024-05-18 06:57] LABS: C Reactive Protein* 4.3 mg/dL (0.5-1.0)
[2024-05-18 07:00] VITALS: BP 128/74; PULSE 76; RESP 16; TEMP 37.2; O2SAT 94
--- NOTE | 2024-05-18 08:24 | PC.NURSE ---
End of shift [id number] - Pt alert, oriented, cooperative. Independent in room, tolerating RA and regular diet/fluids. Pt reported pain R leg as 2-8/10 and explained the pain and itching and aching. Pt reported that an ice pack to the site improved comfort, RN provided. Mepilex dressing on wound changed during shift as serosanguineous drainage was observed to be present on dressing. Redness and swelling did not appear to exceed marked outline during shift and pt remained afebrile. Pt appears to be resting comfortably at end of shift with call light within reach.
[2024-05-18] MEDS: MULTIVITAMIN/MINERALS 1 TABLET 1 TAB PO (08:28)
[2024-05-18] MEDS: LEVOTHYROXINE 50 MCG TABLET PO (08:28)
[2024-05-18] MEDS: SODIUM CHLORIDE 0.9 % (FLUSH) 10 ML SYRINGE 5 ML IVF ×2 (08:29→20:22)
[2024-05-18 10:41] VITALS: BP 129/84; PULSE 72; RESP 14; TEMP 37; O2SAT 97
--- NOTE | 2024-05-18 10:44 | P.ORCN_ITS ---
History of Present Illness HPI Time Seen by Provider: 10:44 Date Seen: 05/18/24 Consult date: 05/18/24 Requesting physician: Gurinder Miranda Consult reason: other (Puncture wound to right leg) Chief complaint: Puncture wound to left leg Narrative: Ashlee is a very pleasant 58-year-old young lady who was admitted yesterday with a worsening infection after a puncture wound right lateral lower leg, farm accident. A rested spike from a fence post penetrated her lateral lower leg. She cleaned out the wound at home and was seen in urgent care where she had x- rays performed, small foreign body debris was seen on x-ray. She had taken 2 doses all Augmentin and noted increasing pain and swelling and presented to the emergency room yesterday. She has been on IV antibiotics ertapenem and vanc omycin. The area of erythema was outlined with a sharpie marker which is much improved today. A Mepilex dressing 4 x 4 is located over the wound. She currently has no numbness or tingling in right lower extremity. Pain level has improved. She is able to flex and extend her knee, ankles and toes without pain or problem. She states the swelling behind her lateral knee has also improved on IV antibiotics. The wound has been left open to drain. Cultures have been taken, awaiting results. Review of Systems Narrative: Patient denies nausea, vomiting, fever, chills, chest pain, shortness of breath [facility] Medical History Sleep apnea ?G47.30 - Sleep apnea, unspecified (ICD-10) Hyperlipidemia ?E78.5 - Hyperlipidemia, unspecified (ICD-10) Hypothyroidism ?E03.9 - Hypothyroidism, unspecified (ICD-10) Surgical History History of bunionectomy ?Z98.890 - Other specified postprocedural states (ICD-10) History of carpal tunnel release of both wrists ?Z98.890 - Other specified postprocedural states (ICD-10) Family History Grandmother Breast cancer Social History (Reviewed 05/18/24 @ 10:50 by AICHA Shannon Narrative: [place] her . She does not smoke. She drinks 1-2 drinks on weekends. Not during weekdays. What is your current living situation?: I presently have a place to live Problems where you live: no known problems Problems where you live details: n/a In the past 12 months, utilities in danger of being shut off: no In past 12 months, lack of transportation kept you from medical appts, meetings, work, or getting things needed for daily living: no In the past 12 mos, have been you worried that your food would run out before you had money to buy more?: never true In the past 12 mos, the food you bought just didn't last and you didn't have money to buy more?: never true Highest level of school completed/degree received: Bachelor's degree Smoking Status: Never smoker Do you use any of these nicotine containing products: None Second hand tobacco smoke exposure: No How often do you have a drink containing alcohol: 2-4 times a month How many standard drinks containing alcohol do you have on a typical day: 1 or 2 How often do you have six or more drinks on one occasion: Never AUDIT-C Alcohol total score: 2 Non-prescribed substance use: denies use Caffeine: Yes How often does anyone, including family, friends and others, physically hurt you : never How often does anyone, including family, friends and others, insult or talk down to you: never How often does anyone, including family, friends and others, threaten you with harm: never How often does anyone, including family, friends and others, scream or curse at you: never service: No Meds Home Medications and Allergies Home Medications ?Medication ?Instructions ?Recorded ?Confirmed ?Type levothyroxine 25 mcg tablet 50 mcg PO DAILY 10/08/22 05/17/24 History amoxicillin 875 mg-potassium 1 tab PO Q12H 05/17/24 05/17/24 History clavulanate 125 mg tablet multivitamin (Daily Multi-Vitamin 1 tab PO DAILY 05/17/24 05/17/24 History tablet) rosuvastatin 10 mg tablet 10 mg PO DAILY 05/17/24 05/17/24 History Allergies Allergy/AdvReac Type Severity Reaction Status Date / Time No Known Drug Allergies Allergy Unknown Uncoded 10/08/22 11:19 Ortho Exam Narrative Exam Narrative: Alert and oriented x3. Patient is in no acute distress. Converses without labored breathing. Hearing is grossly intact. Ambulates with a Examination of the right lower extremity shows no erythema. 4 x 4 Mepilex is located over the wound. Drainage in the Mepilex approximately a nickel size. CMS intact right lower extremity. Right calf soft and nontender. No palpable abscess or fluctuance. Minimal soft tissue edema. No erythema within the area of sharpie marker. slight tenderness to palpation about the right lower extremity wound area. Range of motion of the right knee, ankle, toes without pain. No edema about the knee. Const Vital Signs, click to edit/add: Vital Signs - 24 hr 05/17/24 13:16 05/17/24 16:30 05/17/24 22:39 Temperature 97.4 F L 97.8 F 98.5 F Pulse Rate [Pulse Oximeter] 72 Pulse Rate [Right Pulse Oximeter] 68 77 Respiratory Rate 16 16 20 Blood Pressure [Right Arm] 136/76 130/72 Blood Pressure [Right Upper Arm] 134/76 Pulse Oximetry 99 98 97 Oxygen Delivery Method Room Air Room Air Room Air 05/18/24 03:00 05/18/24 07:00 05/18/24 10:41 Temperature 98.3 F 99 F 98.6 F Pulse Rate [Pulse Oximeter] Pulse Rate [Right Pulse Oximeter] 64 76 72 Respiratory Rate 16 16 14 Blood Pressure [Right Arm] 114/57 L 128/74 129/84 Blood Pressure [Right Upper Arm] Pulse Oximetry 98 94 97 Oxygen Delivery Method Room Air Room Air Room Air Documenting provider has reviewed patient's vital signs: yes Common normals: no apparent distress and oriented x3 General appearance: cooperative, comfortable and well kempt HENMT Common normals: Yes hearing grossly normal bilaterally Resp Common normals: Yes normal respiratory effort Effort & inspection: able to speak in complete sentences Cardio Common normals: Yes no JVD Peripheral pulses: pulses 2+ throughout Extremity Common normals: full ROM Neuro Common normals: oriented x3 and moves all extremities Psych Common normals: speech normal Appearance: well kempt Attitude: calm and engaged Activity/motor behavior: appropriate eye contact Speech: normal speech Results Labs Labs: Laboratory Results - last 48 hr 05/17/24 05/18/24 13:35 05:55 WBC 6.09 4.67 RBC 4.04 3.66 L Hgb 12.5 11.3 L Hct 38.3 35.2 MCV 95 96 MCH 31 31 MCHC 33 32 RDW Coeff of [place]ante 13.0 13.2 Plt Count 207 196 Neut % (Auto) 69.4 61.5 Lymph % (Auto) 19.0 L 23.3 [place] % (Auto) 9.4 11.6 H Eos % (Auto) 1.8 2.8 Baso % (Auto) 0.2 0.6 Neut # (Auto) 4.23 2.87 Lymph # (Auto) 1.20 1.09 [place] # (Auto) 0.60 0.50 Eos # (Auto) 0.11 0.13 Baso # (Auto) 0.01 0.03 Abs Immat Gran (auto) 0.01 0.01 Imm/Tot Granulo (auto) 0.2 0.2 D-Dimer Quant (PE/DVT) 0.41 Sodium 137 Potassium 4.2 Chloride 108 Carbon Dioxide 24 Anion Gap 5 L BUN 15 Creatinine 0.8 Estimated Creat Clear 68.97 Estimated GFR 85 Glucose 102 Lactate 0.5 Calcium 10.0 Total Bilirubin 0.5 AST 25 ALT 18 Alkaline Phosphatase 91 C-Reactive Protein 5.4 H 4.3 H Total Protein 7.4 Albumin 4.6 Procalcitonin 0.04 Diagnostic results Additional Comments: Right tib/fib xrays, two views. Ordering Physician: Radha Mckeon M.D. Date of Service: 05/17/24 Procedure(s): XR tibia fibula RT 2V Accession Number(s): [id number] cc: Provider,Not a Local; Radha Mckeon M.D.~ For Patients: As a result of the 21st Century Cures Act, medical imaging exams and procedure reports are released immediately into your electronic medical record. You may view this report before your referring provider. If you have questions, please contact your health care provider. Indication: Puncture wound, retained foreign body Technique: Two views of the right lower extremity. Comparison: None. Findings/Impression: No acute fracture or dislocation. Along the lateral lower extremity there are tiny punctate radiopaque densities, the largest measuring 2 millimeters, in the region of soft tissue defect concerning for small retained foreign bodies. Assessment and Plan Assessment and plan (1) Puncture wound of leg not thigh: Problem comment: Right lower extremity. Keep wound clean and dry. Daily dressing changes. Tetanus up-to-date 2021. Status: Acute Total time spent: Total time spent is greater than 50% in coordination of care (as documented) at patient's floor/unit and/or counseling patient: (2) Cellulitis: Problem comment: Continue ertapenem and vancomycin. Await culture and clinical course with plan to transition to oral antibiotics. Monitor for signs or symptoms of abscess. Orthopedic surgery consulted. Continue nonsurgical management. Status: Acute Total time spent: Total time spent is greater than 50% in coordination of care (as documented) at patient's floor/unit and/or counseling patient: Plan Ashlee is feeling much better today than yesterday. Erythema has improved greatly, as well as edema. Plan to continue IV antibiotics. Awaiting cultures and eventually transition to oral antibiotics. Monitor for signs and symptoms of abscess. Continue nonsurgical management. If abscess appears, orthopedics may be consulted once again. Wound has been left open with Mepilex dressing in place. Change dressing as needed. Ambulate as tolerated RLE.
--- NOTE | 2024-05-18 12:08 | PM.IMPN1 ---
Progress Note: A&P Assessment and plan (1) Puncture wound of leg not thigh: Problem details: Right lower extremity. Keep wound clean and dry. Daily dressing changes. Tetanus up-to-date 2021. Status: Acute (2) Cellulitis: Problem details: Continue ertapenem and vancomycin. Await culture and clinical course with plan to transition to oral antibiotics. Monitor for signs or symptoms of abscess. Orthopedic surgery consulted. Continue nonsurgical management. Status: Acute Plan Possible discharge 1-2 days, pending culture results, antibiotic course. Time Spent With Patient Total time spent: Total time spent caring for the patient today was 45 minutes. This includes time spent for the visit reviewing the chart, time spent during the visit, time spent after the visit and documentation and planning in coordination of care. Subjective Date Seen: 05/18/24 Interval history: Patient reports feeling better today. Denies headache or dizziness. Denies chest pain shortness of breath. Has remained afebrile. Erythema of right lower extremity is improving. Pain is improving. Exam Narrative: Exam Narrative: PHYSICAL EXAM General: Pleasant, conversant, NAD HEENT: Normocephalic, atraumatic, sclera white, EOMI, oral mucosa moist Cardiovascular: RRR, S1S2. No pitting edema Pulmonary: CTA bilaterally without rhonchi, rales, expiratory wheezes. No dyspnea Neurological: Alert, answering questions appropriately, cranial nerves intact, no focal findings Extremities: RLE minimal erythema much receded from skin marking. Soft without induration or fluctuance. Wound is dressed, removed, open with mild serosanguineous drainage, epithelialization. AROMI. Neurovascularly intact Skin: Warm, dry. Const: Vital Signs, click to edit/add: Vital Signs - 24 hr 05/17/24 13:16 05/17/24 16:30 05/17/24 22:39 Temperature 97.4 F L 97.8 F 98.5 F Pulse Rate [Pulse Oximeter] 72 Pulse Rate [Right Pulse Oximeter] 68 77 Respiratory Rate 16 16 20 Blood Pressure [Ri ght Arm] 136/76 130/72 Blood Pressure [Ri ght Upper Arm] 134/76 Pulse Oximetry 99 98 97 Oxygen Delivery Me thod Room Air Room Air Room Air 05/18/24 03:00 05/18/24 07:00 05/18/24 10:41 Temperature 98.3 F 99 F 98.6 F Pulse Rate [Pulse Oximeter] Pulse Rate [Right Pulse Oximeter] 64 76 72 Respiratory Rate 16 16 14 Blood Pressure [Ri ght Arm] 114/57 L 128/74 129/84 Blood Pressure [Ri ght Upper Arm] Pulse Oximetry 98 94 97 Oxygen Delivery Me thod Room Air Room Air Room Air Labs Labs: Laboratory Results - last 24 hr 05/17/24 05/18/24 13:35 05:55 WBC 6.09 4.67 RBC 4.04 3.66 L Hgb 12.5 11.3 L Hct 38.3 35.2 MCV 95 96 MCH 31 31 MCHC 33 32 RDW Coeff of [place] 13.0 13.2 Plt Count 207 196 Neut % (Auto) 69.4 61.5 Lymph % (Auto) 19.0 L 23.3 [place] % (Auto) 9.4 11.6 H Eos % (Auto) 1.8 2.8 Baso % (Auto) 0.2 0.6 Neut # (Auto) 4.23 2.87 Lymph # (Auto) 1.20 1.09 [place] # (Auto) 0.60 0.50 Eos # (Auto) 0.11 0.13 Baso # (Auto) 0.01 0.03 Abs Immat Gran (auto) 0.01 0.01 Imm/Tot Granulo (auto) 0.2 0.2 D-Dimer Quant (PE/DVT) 0.41 Sodium 137 Potassium 4.2 Chloride 108 Carbon Dioxide 24 Anion Gap 5 L BUN 15 Creatinine 0.8 Estimated Creat Clear 68.97 Estimated GFR 85 Glucose 102 Lactate 0.5 Calcium 10.0 Total Bilirubin 0.5 AST 25 ALT 18 Alkaline Phosphatase 91 C-Reactive Protein 5.4 H 4.3 H Total Protein 7.4 Albumin 4.6 Procalcitonin 0.04
--- NOTE | 2024-05-18 12:57 | PC.PHA ---
Vancomycin consult note: Indication for vancomycin: cellulitis associated with a puncture wound Age: 58 Height: 165 cm Weight: 91.8 kg Most recent SCr: 0.8 Estimated CrCL: 69 ml/min Recommended dose and frequency: 1250mg q12h to obtain an estimated AUC/EVER of 400-600 mcg*hr/m (AUC ~ 550) Additional comment: 20mg/kg bolus given first (1750 mg) on 05/17/24
[2024-05-18 15:00] VITALS: BP 128/70; PULSE 69; RESP 16; TEMP 36.8; O2SAT 98
[2024-05-18] MEDS: ERTAPENEM 1 GM in 0.9 % SODIUM CHLORIDE Mini-bag 100 ML IVPB (15:01)
[2024-05-18] MEDS: ACETAMINOPHEN 325 MG TABLET 650 MG PO (15:21)
[2024-05-18] MEDS: 0.9 % SODIUM CHLORIDE 250 ml IV (19:01)
--- NOTE | 2024-05-18 19:02 | PC.NURSE ---
End of shift [id number] - Pt alert, oriented, pleasant. Independent in room, tolerating RA and regular diet/fluids well. VSS. Pt denies CP/N/V/D. No BM. Pt reported minimal pain in the R leg, applying ice brought relief. RN provided. Mepilex dressing on wound changed during shift as serosanguineous drainage was observed to be present on dressing. Redness and swelling did not appear to exceed marked outline during shift and pt remained afebrile. Warm to touch. Pt appears to be resting comfortably at end of shift with call light within reach.
[2024-05-18 20:19] VITALS: BP 138/68; PULSE 74; RESP 18; TEMP 37.1; O2SAT 96
[2024-05-18] MEDS: ROSUVASTATIN CALCIUM 10 MG TABLET PO (20:22)
[2024-05-18] MEDS: IBUPROFEN 400 MG TABLET PO (22:08)
[2024-05-18 22:09] VITALS: BP 130/75; PULSE 71; RESP 16; TEMP 36.4; O2SAT 97
[2024-05-19] MEDS: VANCOMYCIN 1.25 GM/250 ML 1.25 GM/250 ML PIGGYBACK IVPB (05:03)
[2024-05-19 05:05] VITALS: RESP 16; TEMP 36.4
[2024-05-19 06:41] LABS: Basophils Percent Auto 0.5 % (0.0-3.0); Eosinophils Percent Auto 3.1 % (0.0-7.0); Hemoglobin* 12.6 gm/dL (12.0-16.0); Lymphocytes Percent Auto 33.2 % (20-44); Mean Corpuscular HGB Conc 32 gm/dL (32-36); Mean Corpuscular Hemoglobin 31 pg (26-34); Mean Corpuscular Volume 97 fL (80-100); Monocytes Percent Auto 11.3 % (0.0-11.0); Neutrophils Percent Auto 51.9 % (42.0-72.0); Platelet Count* 220 K/uL (140-440); RDW Coefficient of Variation % 13.1 % (11.5-15.5); Red Blood Count 4.03 m/uL (4.00-5.20); White Blood Count* 3.88 K/uL (4.50-11.00)
[2024-05-19 06:46] LABS: Slide Review Reflex No
[2024-05-19 06:47] LABS: Slide Review Acceptable Review (Acceptable)
[2024-05-19 07:00] VITALS: BP 125/85; PULSE 64; RESP 16; TEMP 36.8; O2SAT 97
[2024-05-19 07:13] LABS: C Reactive Protein* 2.2 mg/dL (0.5-1.0)
[2024-05-19] MEDS: SODIUM CHLORIDE 0.9 % (FLUSH) 10 ML SYRINGE 5 ML IVF (08:08)
[2024-05-19] MEDS: LEVOTHYROXINE 50 MCG TABLET PO (08:08)
[2024-05-19] MEDS: MULTIVITAMIN/MINERALS 1 TABLET 1 TAB PO (08:08)
[2024-05-19 10:49] VITALS: BP 135/78; PULSE 67; RESP 18; TEMP 37.1; O2SAT 97
--- NOTE | 2024-05-19 13:40 | PC.NURSE ---
Pt discharged to home @ 1332 via wheelchair, accompanied by family member. Pt signed belonging and discharge forms.
--- NOTE | 2024-05-19 14:15 | P.DS_ITS ---
DS: Providers Provider Date Seen: 05/19/24 Date of admission: 05/17/24 15:34 Primary care physician: Not a Local Provider Admitting Clinician: Gurinder Miranda MD Consults: 05/17/24 15:19 Consult to Physician [CONS] Routine Comment: Consulting Provider: Ria Yung Has provider been notified: Yes Attending Physician on discharge: Carmen Montelongo, [facility], PA-C [facility] Date of Discharge: 05/19/24 DS: Diagnosis Discharge Diagnosis (1) Puncture wound of leg not thigh: Status: Acute Problem details: Right lower extremity. Daily cleansing and dressings. Tetanus up-to-date 2021. Wound culture grew bacillus species. Based on this, discharged on oral clindamycin to complete antibiotic therapy. (2) Cellulitis: Status: Acute Problem details: Continued on ertapenem and vancomycin. Transitioned to oral clindamycin based on wound culture findings of bacillus. Orthopedic surgery consulted. Continue nonsurgical management. The patient follow-up with PCP, has an appointment on 05/25/2024. DS: Summary Hospital Course Hospital Course: [age] year old female was admitted to the medical floor for cellulitis in setting of lower extremity puncture wound. Course of care and details as noted above. Wound culture grew bacillus species. Responded well to IV ertapenem and vancomycin. We transition to oral clindamycin at time of discharge. Close outpatient follow-up with PCP next week. Remainder of chronic medical comorbidities were monitored and managed with home medications. Status at Discharge Functional status at discharge: independent ambulation Overall status at discharge: patient is back to baseline Time Spent with Patient Time attestation: Total time spent providing and/or coordinating discharge services: Time spent: Greater than 30 minutes Exam Narrative: Exam Narrative: PHYSICAL EXAM General: Pleasant, conversant, NAD Cardiovascular: RRR Pulmonary: No dyspnea Neurological: Alert, answering questions appropriately Skin: Warm, dry. Const: Vital Signs, click to edit/add: Vital Signs - 24 hr 05/18/24 15:00 05/18/24 20:19 05/18/24 22:09 Temperature 98.3 F 98.7 F 97.5 F L Pulse Rate [Right Pulse Oximeter] 69 74 71 Respiratory Rate 16 18 16 Blood Pressure [Ri ght Arm] 128/70 138/68 130/75 Pulse Oximetry 98 96 97 Oxygen Delivery Me thod Room Air Room Air Room Air 05/19/24 05:05 05/19/24 07:00 05/19/24 10:49 Temperature 97.5 F L 98.3 F 98.8 F Pulse Rate [Right Pulse Oximeter] 64 67 Respiratory Rate 16 16 18 Blood Pressure [Ri ght Arm] 125/85 135/78 Pulse Oximetry 97 97 Oxygen Delivery Me thod Room Air Room Air DS: Data Data Completed and Pending Labs on day of discharge: Labs from last 24 hours 05/19/24 06:17 WBC 3.88 L RBC 4.03 Hgb 12.6 Hct 39.0 MCV 97 MCH 31 MCHC 32 RDW Coeff of [place] 13.1 Plt Count 220 Neut % (Auto) 51.9 Lymph % (Auto) 33.2 [place] % (Auto) 11.3 H Eos % (Auto) 3.1 Baso % (Auto) 0.5 Neut # (Auto) 2.00 Lymph # (Auto) 1.30 [place] # (Auto) 0.40 Eos # (Auto) 0.10 Baso # (Auto) 0.00 Abs Immat Gran (auto) 0.00 Imm/Tot Granulo (auto) 0.0 Diff Slide Review Acceptable Review C-Reactive Protein 2.2 H Imaging Tib fib x-ray: Attestation: I have reviewed the pertinent imaging results. Radiologist's impression: Two views of the right lower extremity. Comparison: None. Findings/Impression: No acute fracture or dislocation. Along the lateral lower extremity there are tiny punctate radiopaque densities, the largest measuring 2 millimeters, in the region of soft tissue defect concerning for small retained foreign bodies. Discharge Plan Discharge Disposition: Home, Self-Care Date of Admission: 05/17/24 15:34 Attending Provider on Discharge: Carmen Montelongo Consulting Providers: Ria Yung Primary Care Provider: Provider,Not a Local Condition: Improved Anticipated Discharge Date/Time: 05/19/24 11:48 Discharge Medications: New clindamycin HCl 300 mg capsule 300 mg PO BID Qty: 20 0RF Continued levothyroxine 25 mcg tablet 50 mcg PO DAILY rosuvastatin 10 mg tablet 10 mg PO DAILY multivitamin [Daily Multi-Vitamin] Tablet 1 tab PO DAILY Discontinued amoxicillin-pot clavulanate 875-125 mg tablet 1 tab PO Q12H Discharge Orders: Discharge Order (Routine); Ordered 05/19/24 Ordered By: Carmen Montelongo Patient Education: Clindamycin (By mouth), Puncture Wound (GEN), Cellulitis (GEN) Additional Instructions: Bacillus grew in your wound culture. Take Clindamycin twice daily until your follow up appointment on 05/25. You may be instructed to take the full 10 day dose. Activity Level: Activity as Tolerated Discharge Diet: Regular Follow Up Appointments: Mimi Wagner CNP [Staff Physician] - 05/25/24 ([facility] for follow-up.) Provider,Not a Local [Primary Care Provider] - Forms: [employer] Info Instructions Discharge Comments: Follow up at [facility] on 05/25/24 as previously scheduled
== END 2024-05-19 13:32 | disposition home or self-care (01) | DRG 949 ==
LOC: ED 14:09 → MEDSURG 15:33
PROVIDERS: Admitting Provider Family Medicine; Emergency Provider Family Medicine; Visit Provider Family Medicine
DX: S81.841D Puncture wound with foreign body, right lower leg, subsequent encounter (principal); L03.115 Cellulitis of right lower limb; E78.5 Hyperlipidemia, unspecified; E03.9 Hypothyroidism, unspecified
CPT/HCPCS: 36415; 73590; 80053; 83605; 84145; 85025; 85379; 86140; 87070; 99284; A9153; A9270; J1200; J1335; J3372; J7050